=== PATIENT | male | born 1980 | race Caucasian/White ===

== ENCOUNTER 2017-03-23 06:45 | Emergency (ER) | payer OTHER ==
[~2017-03-23] VITALS: Ht 177.8 cm; Wt 72.6 kg
--- NOTE | 2017-03-23 07:19 | ED GENERAL ADULT ---
History of Present Illness General Chief Complaint: Abdominal Pain/Flank Pain Stated Complaint: KIDNEY STONE? Source: patient, family Exam Limitations: no limitations Vital Signs & Intake/Output Vital Signs & Intake/Output Vital Signs Date Time Temp Pulse Resp B/P B/P Pulse O2 O2 Flow FiO2 Mean Ox Delivery Rate 03/23 0918 97.0 80 20 130/89 96 Room Air 03/23 0804 98.0 84 20 118/60 98 Room Air 03/23 0738 98.0 100 20 135/80 96 Room Air 03/23 0654 99 Room Air 03/23 0651 96.8 91 18 141/88 99 Room Air Allergies Coded Allergies: shellfish derived (UNKNOWN 03/23/17) Reconcile Medications Ondansetron HCl (Zofran) 4 MG TABLET 1 TAB PO Q6-8P PRN nausea Oxycodone HCl/Acetaminophen (Percocet 5-325 MG Tablet) 5 MG-325 MG TABLET 1 TAB PO BID PRN pain Tamsulosin HCl (Flomax) 0.4 MG CAP.ER.24H 1 CAP PO DAILY kidney stones Triage Note: TRIAGE: PATIENT TO ER FROM HOME REPORTING "WOKE UP THIS AM WITH SHARP R FLANK PAIN WHEN URINATED, HX STONES, FEELS SAME." CURRENT PAIN 01/09. DENIES N/V/D. AFEBRILE. PATIENT REPORTS "EVERY TIME I HAVE HAD A STONE THEY HAVE HAD TO BLAST IT." Triage Nurses Notes Reviewed? yes Onset: Abrupt Duration: hour(s): Timing: recent history HPI: 03/23/17 7:40 am This is a 37-year-old man who presents to the emergency department with a sudden onset of right-sided flank pain. According to the patient is in his usual state of health until earlier this morning when he woke up with severe right-sided flank pain. He has a past medical history of kidney stones. He also has past medical history for status post lithotripsy. He denies any fever. He says the pain is actually much better now since its onset at 5 AM. The onset of the symptoms were abrupt, the duration has been just since this morning, the severity is significant; as his symptoms required him to come to the emergency department for care. Past History Travel History Traveled to [place] past 21 day No Medical History Any Pertinent Medical History? 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 No Review of Systems Review of Systems Constitutional: Denies: fever. EENTM: Reports: no symptoms. Respiratory: Reports: no symptoms. Cardiovascular: Reports: no symptoms. GI: Reports: abdominal pain. Genitourinary: Reports: see HPI. Musculoskeletal: Reports: back pain. Skin: Denies: rash. Neurological/Psychological: Reports: no symptoms. Hematologic/Endocrine: Reports: no symptoms. Physical Exam Physical Exam General Appearance: well developed/nourished, alert, awake, anxious Head: atraumatic, normal appearance Eyes: Bilateral: normal appearance, PERRL, EOMI. Ears, Nose, Throat: normal pharynx, normal ENT inspection Neck: normal inspection, supple, full range of motion Respiratory: normal breath sounds, chest non-tender, no respiratory distress Cardiovascular: regular rate/rhythm Peripheral Pulses: 4+ radial (R), 4+ radial (L) Gastrointestinal: soft, non-tender Back: CVA tenderness (R) Extremities: normal inspection, normal range of motion, no edema Neurologic/Psych: no motor/sensory deficits, awake, alert, oriented x 3 Skin: intact, normal color, warm/dry Core Measures ACS in differential dx? No CVA/TIA Diagnosis: No Severe Sepsis Present: No Septic Shock Present: No Progress Differential Diagnoses I considered the following diagnoses in my evaluation of the patient: [Renal colic, pyelonephritis, disc herniation, appendicitis] Plan of Care: Orders Procedure Date/time Status COMPREHENSIVE METABOLIC PANEL 03/23 0716 Complete CBC WITHOUT DIFFERENTIAL 03/23 0716 Complete URINALYSIS 03/23 0715 Complete Laboratory Tests 03/23/17 0725: Anion Gap 10, Estimated GFR > 60, BUN/Creatinine Ratio 17.5, Glucose 97, Calcium 9.4, Total Bilirubin 0.9, AST 19, ALT 26, Alkaline Phosphatase 66, Total Protein 6.6, Albumin 4.3, Globulin 2.3, Albumin/Globulin Ratio 1.9, CBC w Diff NO MAN DIFF REQ, RBC 5.07, MCV 91.8, MCH 31.4 H, RDW 13.6, MPV 7.9, Gran % 59.7, Lymphocytes % 26.7, Monocytes % 8.1, Eosinophils % 4.8, Basophils % 0.7, Absolute Granulocytes 4.0, Absolute Lymphocytes 1.8, Absolute Monocytes 0.5, Absolute Eosinophils 0.3, Absolute Basophils 0, PUBS MCHC 34.2 03/23/17 0719: Urine Color YEL, Urine Clarity HAZY H, Urine pH 6.0, Ur Specific [place] 1.025, Urine Protein NEG, Urine Ketones NEG, Urine Nitrite NEG, Urine Bilirubin NEG, Urine Urobilinogen 0.2, Ur Leukocyte Esterase NEG, Ur Microscopic SEDIMENT EXAMINED, Urine RBC 5-10 H, Urine WBC RARE, Ur Epithelial Cells FEW, Urine Mucus FEW, Urine Hemoglobin MOD H, Urine Glucose NEG Initial ED EKG: none Departure Departure Disposition: STILL A PATIENT Condition: Stable Clinical Impression Primary Impression: Flank pain Referrals: PATIENT HAS NO PRIMARY CARE DR (PCP/Family) Departure Forms: Customer Survey General Discharge Information Prescriptions: Current Visit Scripts Tamsulosin HCl (Flomax) 1 CAP PO DAILY #10 CAP Oxycodone HCl/Acetaminophen (Percocet 5-325 MG Tablet) 1 TAB PO BID PRN pain #10 TAB Ondansetron HCl (Zofran) 1 TAB PO Q6-8P PRN nausea #5 TAB Comments us result: PATIENT: ZORAIDA HORTON PRESENT AGE: 37 PATIENT ACCOUNT NO: [id number] : 80 LOCATION: [facility] ORDERING PHYSICIAN: MARKOS TALLEY DO SERVICE DATE: 03/23/17 EXAM TYPE: US - US-RENAL/KIDNEY EXAMINATION: US RETROPERITONEAL COMPLETE (RENAL) CLINICAL INFORMATION: Right flank pain. History of kidney stones.. COMPARISON: None TECHNIQUE: Real-time imaging of the kidneys and bladder. FINDINGS: RIGHT KIDNEY: 11 x 5.1 x 5.9 cm (SAG x AP x TRV). The kidney is normal in size, contour, and echogenicity. Renal cortical thickness is normal. Mild to moderate hydronephrosis is new as compared to prior. There is proximal hydroureter as well. A shadowing calculus measuring approximately 1 cm in length is present within the proximal ureter. Multiple echogenic, shadowing calculi are present in the right renal calyces including a 0.5 cm calculus in the upper pole, a 0.6 cm calculus in the interpolar region, and a 0.6 cm calculus in the lower pole. LEFT KIDNEY: 12.3 x 6 x 4.4 cm (SAG x AP x TRV). The kidney is normal in size, contour, and echogenicity. Renal cortical thickness is normal. Subtle echogenic reflectors in the interpolar region may correspond to small nonobstructing calculi. No hydronephrosis. No focal lesions. BLADDER: Partially distended. Bilateral ureteral jets are demonstrated. IMPRESSION: 1. Mild to moderate right-sided hydronephrosis due to a 1 cm calculus in the proximal ureter. 2. Multiple additional nonobstructing calculi in the right kidney as well as small nonobstructing calculi in the left kidney. DICTATED BY: LUIS ALFREDO BARRERA MD DATE/TIME DICTATED:03/23/17809 TERRITORY SUPERVISOR:SHERRIE DATE/TIME TRANSCRIBED:03/23/17809 CONFIDENTIAL, DO NOT COPY WITHOUT APPROPRIATE AUTHORIZATION. <Electronically signed in Other Vendor System> SIGNED BY: LUIS ALFREDO BARRERA MD 03/23/17819 The patient is currently asymptomatic in the Emergency Department. Dr. Moya was paged. The patient will follow-up with Dr. Moya, drink lots of fluids, take the Flomax and Percocet as needed return to the emergency department if fever or worse I spoke with Dr. Moya. He is aware with the plan of care and will see the patient in follow-up. Critical Care Note Critical Care Note Critical Care Time: non-applicable
[2017-03-23 07:39] LABS: ABSOLUTE BASOPHIL COUNT 0 /CUMM (0.0-0.2); ABSOLUTE EOSINOPHIL COUNT 0.3 /CUMM (0.0-0.7); ABSOLUTE LYMPH COUNT 1.8 /CUMM (1.2-3.4); ABSOLUTE MONOCYTE COUNT 0.5 /CUMM (0.10-0.60); BASOPHIL % 0.7 % (0.0-2.0); EOSINOPHIL % 4.8 % (0-5); GRANULOCYTE % 59.7 % (42.2-75.2); HEMATOCRIT 46.6 % (42-52); MEAN CORPUSCULAR HGB 31.4 PG (27.0-31.0); MEAN CORPUSCULAR HGB CONC 34.2 G/DL (33.0-37.0); MEAN CORPUSCULAR VOLUME 91.8 FL (80.0-94.0); MEAN PLATELET VOLUME 7.9 FL (7.4-10.4); PLATELET COUNT 284 /CUMM (130-400); RBC DISTRIBUTION WIDTH 13.6 % (11.5-14.5); RED BLOOD CELL CT 5.07 /CUMM (4.70-6.10); WHITE BLOOD CELL COUNT 6.7 /CUMM (4.8-10.8)
--- NOTE | 2017-03-23 08:20 | ULTRASOUND REPORT ---
EXAMINATION: US RETROPERITONEAL COMPLETE (RENAL) CLINICAL INFORMATION: Right flank pain. History of kidney stones.. COMPARISON: None TECHNIQUE: Real-time imaging of the kidneys and bladder. FINDINGS: RIGHT KIDNEY: 11 x 5.1 x 5.9 cm (SAG x AP x TRV). The kidney is normal in size, contour, and echogenicity. Renal cortical thickness is normal. Mild to moderate hydronephrosis is new as compared to prior. There is proximal hydroureter as well. A shadowing calculus measuring approximately 1 cm in length is present within the proximal ureter. Multiple echogenic, shadowing calculi are present in the right renal calyces including a 0.5 cm calculus in the upper pole, a 0.6 cm calculus in the interpolar region, and a 0.6 cm calculus in the lower pole. LEFT KIDNEY: 12.3 x 6 x 4.4 cm (SAG x AP x TRV). The kidney is normal in size, contour, and echogenicity. Renal cortical thickness is normal. Subtle echogenic reflectors in the interpolar region may correspond to small nonobstructing calculi. No hydronephrosis. No focal lesions. BLADDER: Partially distended. Bilateral ureteral jets are demonstrated. IMPRESSION: 1. Mild to moderate right-sided hydronephrosis due to a 1 cm calculus in the proximal ureter. 2. Multiple additional nonobstructing calculi in the right kidney as well as small nonobstructing calculi in the left kidney.
[2017-03-23] MEDS ORDERED: ZOFRAN4 M2 PO (09:17)
[2017-03-23] MEDS ORDERED: FLOMAX0.4 M1 PO (09:17)
[2017-03-23] MEDS ORDERED: PERCOCET 5-3251 EACH PO (09:17)
[2017-03-23 09:18] VITALS: BP 130/89
== END 2017-03-23 09:29 ==
LOC: ERH 06:45
PROVIDERS: Emergency Medicine
DX: R10.9 Unspecified abdominal pain (principal)
CPT/HCPCS: 76775; 81001

== ENCOUNTER → 2017-03-31 | Day surgery (SDC) | payer OTHER ==
[~2017-03-31] VITALS: Ht 177.8 cm; Wt 72.6 kg
[~2017-03-31] MED LIST: FLOMAX0.4 M1 PO; PERCOCET 5-3251 EACH PO; ZOFRAN ODT4 M1 SL; ZOFRAN4 M2 PO
--- NOTE | 2017-03-31 12:02 | Operative Report ---
Operative/Inv Procedure Report Surgery Date: 03/31/17 Name of Procedure: Right ureter ESWL. Fluoroscopy. Pre-Operative Diagnosis: Right ureter stone measuring 10 mm in size. Right hydronephrosis. Post-Operative Diagnosis: Same Estimated Blood Loss: none Surgeon/Tool Salvage Worker: SILVINA JORDAN MD Anesthesia: moderate sedation Specimens: None Complications: None Operative/Procedure Note Note: The patient was taken to the operating room and placed on the ESWL table in supine position. With the patient awake, timeout was performed to cofirm correct identity, procedure, laterality, anesth., and other pertinent allie- operative information. The patient's RIGHT flank was placed over the table cut -out, overlying the dome of the shockwave generator. C-arm fluroscopy, as well as renal US, was used to locate the stone, and evaluate the RIGHT kidney. The stone was clearly visible on fluoroscopy at the mid right ureter, measuring approximately 10 mm stone burden. Under additional 6 mm stone was noted proximal to this obstructing stone in the right ureter. Renal US confimred mild hydronephrosis, and no additional stone, no tumor, seen in the right kidney. After adequate anesthesia, the right ureter stone's position was optimized for Shockwave lithotrypsy using fluoroscopy in AP and oblique views. The E.S.W.L. was initiated at low power levels x 200 shocks. After noting the patient's tolerance to the shockwaves, the shock wave power level was quickly maximized. Toward the end of the procedure, the composition of the stone had changed significantly indicating the pulverization of the ureter stone. A total of 3000 shockwaves were delivered to the stone in order to achieve adequate lithotrypsy. The patient tolerated both the procedure well, was awakened, and taken to recovery in satisfactory condition via stretcher. The pt will be dischared home with pain meds, diet orders, and intructions to catch fragments with straining the urine. The patient is to have follow-up renal ultrasound and KUB in 1-2 weeks, prior to follow-up visit in my office. CC: SILVINA JORDAN MD
== END ==
LOC: STS 04:51
DX: N13.2 Hydronephrosis with renal and ureteral calculous obstruction (principal); F17.200 Nicotine dependence, unspecified, uncomplicated
CPT/HCPCS: J2250

== ENCOUNTER 2017-05-05 17:04 | Emergency (ER) | payer OTHER ==
[~2017-05-05] VITALS: Ht 177.8 cm; Wt 74.8 kg
[~2017-05-05 17:04] MED LIST changes: -ZOFRAN ODT4 M1 SL
--- NOTE | 2017-05-05 19:28 | ED GI/GU/ABDOMINAL COMPLAINT ---
History of Present Illness General Chief Complaint: Male Genitourinary Problems Stated Complaint: ?KIDNEY STONE Source: patient Exam Limitations: no limitations Vital Signs & Intake/Output Vital Signs & Intake/Output Vital Signs Date Time Temp Pulse Resp B/P B/P Pulse O2 O2 Flow FiO2 Mean Ox Delivery Rate 05/053 97.6 80 18 115/68 100 Room Air 05/05 1709 97.6 83 18 123/83 97 Room Air Triage Note: PT STATES HE HAS A KIDNEY STONE RIGHT SIDE FLANK PAIN THAT STARTED 2 HOURS AGO. PT STATES HE WAS SUPPPOSE TO HAVE ONE BLASTED LAST WEEK BY DR. MOYA AND WAS TOLD THAT HE PASSED IT ALREADY. Triage Nurses Notes Reviewed? yes Onset: Abrupt Duration: hour(s): (5) Timing: recent history Quality/Severity: sharpness Severity Numbers: 5 Location: right flank Radiation: no radiation Activities at Onset: none Prior Abdominal Problems: similar symptoms Past Sexual History: Unobtainable at this time Modifying Factors: Worsens With: lying down, movement, palpation. HPI: Patient is a 37-year-old male with history of kidney stones presenting to the emergency department with chief complaint of right flank pain that began approximately 4-5 hours ago. Pain is sharp and stabbing. Currently 5 out of 10 , it was 8 out of 10 when it initially started. History of similar symptoms with kidney stones. Has not taken anything to help with pain. Patient reports that over the past day or 2 he's noticed darkening urine and urinary hesitancy. Similars are consistent with his kidney stone studies had in the past. He sees Dr. Moya. No fevers or chills. (JENNYFER HAIDER) Allergies Coded Allergies: shellfish derived (RASH, ITCHING 05/05/17) Reconcile Medications Ondansetron (Zofran Odt) 4 MG TAB.RAPDIS 1 TAB SL TID PRN NAUSEA Oxycodone HCl/Acetaminophen (Percocet 5-325 MG Tablet) 5 MG-325 MG TABLET 1 TAB PO TID PRN KIDNEY STONE (ERIC GARCIA) Past History Travel History Traveled to [place] past 21 day No Medical History Any Pertinent Medical History? 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 No (JENNYFER HAIDER) Review of Systems Review of Systems Constitutional: Reports: no symptoms. Comments Review of systems: See HPI, All other systems negative. Constitutional, no chills fever or weight loss HEENT: No visual changes no sore throat no congestion Cardiovascular: No chest pain ,palpitation , orthopnea or ankle swelling Skin, no jaundice no rashes Respiratory: No dyspnea cough sputum or hemoptysis GI: No nausea no vomiting : No dysuria No hematuria Muscle skeletal: no neck pain, Neurologic: No numbness no confusion no nayak Psych: No stress anxiety or depression,. Heme/endocrine: No bruising no bleeding no polyuria or polydipsia Immunology: No splenectomy or history of AIDS (JENNYFER HAIDER) Physical Exam Physical Exam General Appearance: well developed/nourished, no apparent distress, alert, awake , comfortable Gastrointestinal: soft Comments: Well-developed well-nourished person in no acute distress HEENT: Pupils equally round and reactive to light and accommodation. Nose is atraumatic. Neck: Normal inspection Back: Right CVA tenderness. Cardiovascular: Regular rate and rhythms no murmurs rubs or gallops, normal JVP Respiratory: No respiratory distress.breath sounds clear to auscultation bilaterally Abdomen: Soft, nontender nondistended, no appreciable organomegaly. Normal bowel sounds. No ascites Neuro: Alert oriented x3 Skin: No appreciable rash on exposed skin, skin is warm and dry. Psych: Mood and affect is normal, memory and judgment is normal. Core Measures ACS in differential dx? No Severe Sepsis Present: No Septic Shock Present: No (JENNYFER HAIDER) Progress Differential Diagnosis: UTI, pyelonephritis, hydronephrosis, ureterolithiasis, nephrolithiasis, dehydration, acute kidney injury Plan of Care: Orders Procedure Date/time Status COMPREHENSIVE METABOLIC PANEL 05/05 1928 Complete CBC WITHOUT DIFFERENTIAL 05/05 1928 Complete US-RENAL/KIDNEY 05/05 1926 Active URINALYSIS 05/05 170 Complete Laboratory Tests 05/05/171945: Anion Gap 14, Estimated GFR > 60, BUN/Creatinine Ratio 20.0, Glucose 95, Calcium 10.1, Total Bilirubin 1.4 H, AST 17, ALT 34, Alkaline Phosphatase 70, Total Protein 7.4, Albumin 4.9, Globulin 2.5, Albumin/Globulin Ratio 2.0, CBC w Diff NO MAN DIFF REQ, RBC 5.23, MCV 92.5, MCH 31.0, RDW 14.3, MPV 7.1 L, Gran % 88.7 H, Lymphocytes % 8.2 L, Monocytes % 2.0, Eosinophils % 0.8, Basophils % 0.3, Absolute Granulocytes 15.1 H, Absolute Lymphocytes 1.4, Absolute Monocytes 0.3, Absolute Eosinophils 0.1, Absolute Basophils 0, PUBS MCHC 33.6 05/05/171846: Urine Color YEL, Urine Clarity HAZY H, Urine pH 6.5, Ur Specific [place] 1.020, Urine Protein TRACE H, Urine Ketones 15 H, Urine Nitrite NEG, Urine Bilirubin NEG, Urine Urobilinogen 0.2, Ur Leukocyte Esterase NEG, Ur Microscopic SEDIMENT EXAMINED, Urine RBC 25-50 H, Urine WBC 1-3 H, Ur Epithelial Cells RARE, Urine Bacteria RARE H, Urine Mucus MOD H, Urine Hemoglobin LARGE H, Urine Glucose NEG Patient is declining anything stronger for pain offered pending CAT scan Patient back from CAT scan again declining anything for pain offered case was discussed with . [address] Moya over the phone he advised that the patient with prior stenting lithotripsy tomorrow. He states as long as the patient feels well enough to go home he can be discharged advised to be nothing by mouth and call him tomorrow morning. Discussed at length with the patient plan of care he feels comfortable going home he is again declining anything for pain offered. I discussed with him at length his CAT scan results and need for procedure tomorrow return precautions were discussed the patient relates he feels comfortable with this plan prescription for Percocet Zofran provided cleared for discharge (ERIC GARCIA) Diagnostic Imaging: Viewed by Me: Radiology Read, Ultrasound. Discussed w/RAD: Radiology Read, Ultrasound. Initial ED EKG: none Hand-Off Endorsed To: ERIC GARCIA Endorsed Time: 1956 Pending: ultrasound, Xray Comments: On arrival patient medicated with fluids and Toradol. He will go for x-ray and ultrasound to assess for any kidney stones. Patient will be signed out to JOSEF Webb. (JENNYFER HAIDER) Diagnostic Imaging: Viewed by Me: CT Scan. Discussed w/RAD: CT Scan. Radiology Impression: PATIENT: ZORAIDA HORTON PRESENT AGE: 37 PATIENT ACCOUNT NO: [id number] : 80 LOCATION: [facility] ORDERING PHYSICIAN: ERIC BAHENA SERVICE DATE: 05/05/17 EXAM TYPE: CAT - CT ABD & PELVIS W/O IV CONTRAS EXAMINATION: CT ABDOMEN AND PELVIS WITHOUT CONTRAST CLINICAL INFORMATION: Right flank pain. COMPARISON: 12/14/2013. TECHNIQUE: Contiguous axial thin section helical images of the abdomen and pelvis were performed without oral or IV contrast. The data set was reformatted in the coronal and sagittal planes and reviewed on an independent workstation. DLP: 268 mGy-cm. FINDINGS: The visualized lung bases are clear. The visualized portions of the heart are unremarkable. The liver is of normal size and attenuation without focal lesions nor intrahepatic biliary ductal dilation. A normal gallbladder is identified. There is no wall thickening or discernible pericholecystic fluid. The spleen, pancreas, adrenal glands are unremarkable. Both kidneys are of normal size and attenuation. There are 2 adjacent mid right ureteral calculi present measuring 1.2 cm in greatest dimension. These results in grade 2-3 hydroureteronephrosis. There are additional nonobstructive right renal calculi present. Within the lower pole, there are 2 nonobstructive calculi. The largest measures 2 mm. There is no left-sided nephrolithiasis. There is no abdominal free fluid. There is neither mesenteric nor retroperitoneal lymphadenopathy. Normal unopacified loops of small and large bowel are identified. There is no pelvic free fluid. The urinary bladder is unremarkable. There is neither pelvic nor inguinal lymphadenopathy. Bone windows : Neither sclerotic nor lytic bone lesions are identified. IMPRESSION: Right grade 2-3 hydronephrosis secondary to mid right ureteral obstructive calculi. DICTATED BY: XANDER CHAMPAGNE MD DATE/TIME DICTATED:05/05/172021 MACHINE TECH:SHERRIE DATE/TIME TRANSCRIBED:05/05/172021 CONFIDENTIAL, DO NOT COPY WITHOUT APPROPRIATE AUTHORIZATION. <Electronically signed in Other Vendor System> SIGNED BY: XANDER CHAMPAGNE MD 05/05/172041 (ERIC GARCIA) Departure Departure Disposition: HOME OR SELF CARE Condition: Stable Clinical Impression Primary Impression: Renal colic Referrals: PATIENT HAS NO PRIMARY CARE DR (PCP/Family) SILVINA MOYA MD Departure Forms: Customer Survey General Discharge Information (ANTOLIN BAHENA,JENNYFER) Departure Time of Disposition: 2101 Additional Instructions: As discussed nothing to eat or drink past 12:[address] Moya will call you first thing in the morning to inform you of the time of your procedure. Zofran if needed for nausea Percocet for breakthrough pain this will make you drowsy no driving or drinking alcohol while taking. Return to the ER immediately if he have worsening pain despite medication nausea vomiting fever chills or any other concerns this prescription was sent to [facility] Prescriptions: Current Visit Scripts Oxycodone HCl/Acetaminophen (Percocet 5-325 MG Tablet) 1 TAB PO TID PRN KIDNEY STONE #15 TAB Ondansetron (Zofran Odt) 1 TAB SL TID PRN NAUSEA #10 TAB (ERIC GARCIA) PA/LEARNING SUPPORT SPECIALIST Co-Sign Statement Statement: ED Attending supervision documentation- [] I saw and evaluated the patient. I have also reviewed all the pertinent lab results and diagnostic results. I agree with the findings and the plan of care as documented in the PA's/LEARNING SUPPORT SPECIALIST's documentation. [X] I have reviewed the ED Record and agree with the PA's/LEARNING SUPPORT SPECIALIST's documentation. [] Additions or exceptions (if any) to the PAs/LEARNING SUPPORT SPECIALIST's note and plan are summarized below: [] (ALISSA BENJAMIN,MIHIR Hopper)
[2017-05-05 19:52] LABS: ABSOLUTE BASOPHIL COUNT 0 /CUMM (0.0-0.2); ABSOLUTE EOSINOPHIL COUNT 0.1 /CUMM (0.0-0.7); ABSOLUTE GRANULOCYTE CT 15.1 /CUMM (1.4-6.5); ABSOLUTE LYMPH COUNT 1.4 /CUMM (1.2-3.4); ABSOLUTE MONOCYTE COUNT 0.3 /CUMM (0.10-0.60); BASOPHIL % 0.3 % (0.0-2.0); EOSINOPHIL % 0.8 % (0-5); GRANULOCYTE % 88.7 % (42.2-75.2); HEMATOCRIT 48.4 % (42-52); MEAN CORPUSCULAR HGB CONC 33.6 G/DL (33.0-37.0); MEAN CORPUSCULAR VOLUME 92.5 FL (80.0-94.0); MEAN PLATELET VOLUME 7.1 FL (7.4-10.4); PLATELET COUNT 311 /CUMM (130-400); RBC DISTRIBUTION WIDTH 14.3 % (11.5-14.5); RED BLOOD CELL CT 5.23 /CUMM (4.70-6.10)
--- NOTE | 2017-05-05 19:53 | RADIOLOGY REPORT ---
EXAMINATION: ABDOMEN 1 VIEW CLINICAL INFORMATION: Right flank pain. COMPARISON: A 2016. TECHNIQUE: A supine view of the abdomen is provided. FINDINGS: There are no dilated loops of small bowel. There are no air-fluid levels. 2 calculi previously identified within the right kidney are now identified within the mid right ureter at the level of L4. The largest measures 7 mm. The visualized lung bases are clear. The osseous structures are unremarkable. IMPRESSION: 2 adjacent right ureteral calculi Unremarkable bowel gas pattern.
--- NOTE | 2017-05-05 20:42 | CT SCAN REPORT ---
EXAMINATION: CT ABDOMEN AND PELVIS WITHOUT CONTRAST CLINICAL INFORMATION: Right flank pain. COMPARISON: 12/14/2013. TECHNIQUE: Contiguous axial thin section helical images of the abdomen and pelvis were performed without oral or IV contrast. The data set was reformatted in the coronal and sagittal planes and reviewed on an independent workstation. DLP: 268 mGy-cm. FINDINGS: The visualized lung bases are clear. The visualized portions of the heart are unremarkable. The liver is of normal size and attenuation without focal lesions nor intrahepatic biliary ductal dilation. A normal gallbladder is identified. There is no wall thickening or discernible pericholecystic fluid. The spleen, pancreas, adrenal glands are unremarkable. Both kidneys are of normal size and attenuation. There are 2 adjacent mid right ureteral calculi present measuring 1.2 cm in greatest dimension. These results in grade 2-3 hydroureteronephrosis. There are additional nonobstructive right renal calculi present. Within the lower pole, there are 2 nonobstructive calculi. The largest measures 2 mm. There is no left-sided nephrolithiasis. There is no abdominal free fluid. There is neither mesenteric nor retroperitoneal lymphadenopathy. Normal unopacified loops of small and large bowel are identified. There is no pelvic free fluid. The urinary bladder is unremarkable. There is neither pelvic nor inguinal lymphadenopathy. Bone windows: Neither sclerotic nor lytic bone lesions are identified. IMPRESSION: Right grade 2-3 hydronephrosis secondary to mid right ureteral obstructive calculi.
[2017-05-05 20:53] VITALS: BP 115/68
[2017-05-05] MEDS ORDERED: PERCOCET 5-3251 EACH PO (21:03)
[2017-05-05] MEDS ORDERED: ZOFRAN ODT4 M1 SL (21:03)
== END 2017-05-05 21:21 ==
LOC: ERH 17:04
PROVIDERS: Physician Assistant
DX: N23 Unspecified renal colic (principal)
CPT/HCPCS: 74000; 74176; 81001; 96374; J1885

== ENCOUNTER → 2017-05-12 | Day surgery (SDC) | payer OTHER ==
[~2017-05-12] VITALS: Ht 177.8 cm; Wt 74.8 kg
[~2017-05-12] MED LIST changes: +ZOFRAN ODT4 M1 SL
--- NOTE | 2017-05-12 10:45 | Operative Report ---
Operative/Inv Procedure Report Surgery Date: 05/12/17 Name of Procedure: rigdebbie mid-ureter ESWL. fluoroscopy Pre-Operative Diagnosis: right hydro. and colic due to large right mid-ureter stone. Post-Operative Diagnosis: same Estimated Blood Loss: none Surgeon/Cafeteria Aide: SILVINA JORDAN MD Anesthesia: moderate sedation Complications: none Operative/Procedure Note Note: The patient was taken to the operating room and placed on the ESWL table in supine position. With the patient awake, timeout was performed to cofirm correct identity, procedure, laterality, anesth., and other pertinent allie- operative information. The patient's RIGHT flank was placed over the table cut -out, overlying the dome of the shockwave generator. C-arm fluroscopy, as well as renal US, was used to locate the stone, and evaluate the RIGHT kidney. The stone was clearly visible on fluoroscopy at the distal right ureter, measuring approximately 9 mm in size. Renal US confimred mild hydronephrosis, no additional stones, and no tumor seen in the right kidney. After adequate anesthesia, the right ureter stone's position was optimized for Shockwave lithotrypsy using fluoroscopy in AP, and oblique views. The E.S.W.L. was initiated at low power levels x 200 shocks. After noting the patient's tolerance to the shockwaves, the shock wave power level was quickly maximized. Toward the end of the procedure, the composition of the stone had changed significantly indicating the pulverization of the ureter stone. A total of 3000 shockwaves were delivered to the stone in order to achieve adequate lithotrypsy. The patient tolerated both the procedure well, was awakened, and taken to recovery in satisfactory condition via stretcher. The pt will be dischared home with pain meds, diet orders, and intructions to catch fragments with straining the urine. The patient is to have follow-up renal ultrasound and KUB in 1-2 weeks, prior to follow-up visit in my office. Findings: 9mm right mid-ureter stone Discharge Disposition: Same Day Admissions CC: SILVINA JORDAN MD
== END ==
LOC: STS 01:20
DX: N13.2 Hydronephrosis with renal and ureteral calculous obstruction (principal); F17.200 Nicotine dependence, unspecified, uncomplicated